=== PATIENT | female | born 1990 | race Caucasian/White ===

== ENCOUNTER 2021-02-18 04:10 | Inpatient (IN) | payer OTHER, SELFPAY ==
[~2021-02-18] VITALS: Ht 167.6 cm; Wt 72.6 kg
[2021-02-18] MEDS ORDERED: LACTATED RINGERS 1,000 ML IV SCH (04:45)
[2021-02-18] MEDS ORDERED: LACTATED RINGERS 500 ML IV ONE (04:45)
[2021-02-18] MEDS ORDERED: AMPICILLIN 2,000 MG in NACL 0.9% MINI-BAG PLUS 100 ML IV SCH (04:45)
[2021-02-18] MEDS ORDERED: OXYTOCIN 20 UNITS in NACL 0.9% 1,000 ML IV SCH (04:50)
[2021-02-18] MEDS ORDERED: AMPICILLIN 2,000 MG VIAL ONE (05:15)
[2021-02-18 05:21] LABS: BASOPHILS # (AUTO) 0.1 K/uL (0.00-0.22); BASOPHILS % (AUTO) 0.6 % (0.0-2.0); EOSINOPHILS % (AUTO) 0.6 % (0.0-4.0); HEMATOCRIT 31.9 % (36-48); HEMOGLOBIN 10.4 g/dL (12.0-16.0); LYMPHOCYTES # (AUTO) 2.1 K/uL (2.5-16.5); LYMPHOCYTES % (AUTO) 24.9 % (20.5-51.1); MEAN CORPUSCULAR HEMOGLOBIN 25 pg (27-31); MEAN CORPUSCULAR HGB CONC 33 g/dL (33-37); MONOCYTES # (AUTO) 0.7 K/uL (0.8-1.0); MONOCYTES % (AUTO) 8.7 % (1.7-9.3); NEUTROPHILS # (AUTO) 5.5 K/uL (1.8-7.7); NEUTROPHILS % (AUTO) 65.2 % (42.2-75.2); PLATELET COUNT (AUTO) 325 K/uL (140-450); RED BLOOD CELL COUNT(AUTO) 4.09 MIL/uL (4.20-5.40); RED CELL DISTRIBUTION WIDTH 16.3 % (11.6-13.7); WHITE BLOOD COUNT (AUTO) 8.5 K/uL (4.8-10.8)
[2021-02-18 05:31] LABS: APPEARANCE,URINE CLEAR (CLEAR); BILIRUBIN,URINE NEGATIVE (NEGATIVE); BLOOD, URINE NEGATIVE (NEGATIVE); COLOR,URINE YELLOW (YELLOW); LEUKOCYTE ESTERASE ,URINE NEGATIVE (NEGATIVE); NITRITE, URINE NEGATIVE (NEGATIVE); UGLUCOSE NEGATIVE (NEGATIVE)
[2021-02-18] MEDS ORDERED: MORPHINE SULFATE 10 MG/ML VIAL ONE (05:39)
[2021-02-18] MEDS ORDERED: OXYTOCIN 20 UNITS in LACTATED RINGERS 1,000 ML IV SCH (05:40)
[2021-02-18] MEDS ORDERED: ONDANSETRON 4 MG/2 ML VIAL IVP PRN (05:40)
[2021-02-18] MEDS ORDERED: MORPHINE SULFATE 5 MG/ML VIAL IVP PRN (05:40)
[2021-02-18] MEDS ORDERED: ONDANSETRON 4 MG/2 ML VIAL ONE (05:40)
[2021-02-18 05:50] VITALS: BP 119/65
[2021-02-18 05:50] LABS: BARBITURATE, URINE NEGATIVE ng/ml (NEG <=200); BENZODIAZEPINE, URINE NEGATIVE ng/mL (NEG <=200); CANNABINOID, URINE NEGATIVE ng/mL (NEG <=50); COCAINE, URINE NEGATIVE ng/mL (NEG <=300); OPIATE, URINE NEGATIVE ng/mL (NEG <=2000); PHENCYCLIDINE SCREEN,URINE NEGATIVE ng/mL (NEG <=25)
[2021-02-18] MEDS ORDERED: PRETAB PO (05:56)
[2021-02-18 05:59] LABS: ALBUMIN 1.9 g/dL (3.4-5.0); ANION GAP 16.3 (8-16); CARBON DIOXIDE 18.4 mmol/L (21-32); CREATININE 0.6 mg/dL (0.6-1.3); POTASSIUM 3.7 mmol/L (3.5-5.1); TOTAL BILIRUBIN 0.2 mg/dL (0.0-1.0)
[2021-02-18] MEDS ORDERED: fentaNYL citrate 0.05 MG/ML VIAL ONE ×2 (07:44→07:49)
[2021-02-18] MEDS ORDERED: ROPIVACAINE 0.2%/NS PREMIX 200 ML EPI ONE (07:44)
[2021-02-18] MEDS ORDERED: LIDOCAINE 2% 100 MG/5 ML SYR IVP ONE (07:49)
[2021-02-18] MEDS ORDERED: OXYTOCIN 20 UNITS/LR PREMIX 1,000 ML IV ONE (07:50)
[2021-02-18] MEDS ORDERED: AMPICILLIN 1,000 MG in NACL 0.9% MINI-BAG PLUS 50 ML IV SCH (08:00)
[2021-02-18 08:44] LABS: RAPID PLASMA REAGIN NON-REACTIVE (Non Reactiv)
--- NOTE | 2021-02-18 08:51 | NUR ---
PATIENT HAS BEEN SCREENED AND CATEGORIZED LOW NUTRITION RISK. PATIENT WILL BE SEEN WITHIN 7 DAYS OF ADMISSION. 02/24/[address]
[2021-02-18] MEDS ORDERED: oxyCODONE/APAP 5/325 MG 1 TAB TAB PO PRN (12:40)
[2021-02-18] MEDS ORDERED: HYDROcodone/APAP 5/325 MG 1 TAB TAB PO PRN (12:40)
[2021-02-18] MEDS ORDERED: IBUPROFEN 600 MG TAB PO PRN (12:40)
[2021-02-18] MEDS ORDERED: MEASLES, MUMPS, AND RUBELLA 1 VIAL SQVAC ONE (12:40)
[2021-02-18] MEDS ORDERED: METHYLERGONOVINE 0.2 MG/ML AMP IM PRN (12:40)
[2021-02-18] MEDS ORDERED: TEMAZEPAM 15 MG CAP PO PRN (12:40)
[2021-02-18] MEDS ORDERED: SODIUM PHOSPHATE 118 ML ENEM RC PRN (12:40)
[2021-02-18] MEDS ORDERED: MEASLES, MUMPS, AND RUBELLA 1 VIAL SQVAC SCH (13:00)
[2021-02-18] MEDS ORDERED: DOCUSATE SOD/SENNA 50/8.6 MG 1 TAB PO SCH (21:00)
[2021-02-19 05:30] LABS: HEMATOCRIT 27.7 % (36-48)
[2021-02-19 06:07] LABS: HEPATITIS B SURFACE ANTIGEN Negative (Negative)
[2021-02-19] MEDS ORDERED: IBUP-2213 PO (15:31)
== END 2021-02-19 17:40 | disposition home or self-care (01) | DRG 560 ==
LOC: MLD 04:10 → MFCC 15:55
PROVIDERS: ADMIT Obstetrics & Gynecology; ATTEND Obstetrics & Gynecology
PROC: 10D07Z6 Extraction of Products of Conception, Vacuum, Via Natural or Artificial Opening (ICD-10-PCS; principal; 2021-02-18)
PROC: 0UQMXZZ Repair Vulva, External Approach (ICD-10-PCS; 2021-02-18)
PROC: 10907ZC Drainage of Amniotic Fluid, Therapeutic from Products of Conception, Via Natural or Artificial Opening (ICD-10-PCS; 2021-02-18)
PROC: 3E0R3BZ Introduction of Anesthetic Agent into Spinal Canal, Percutaneous Approach (ICD-10-PCS; 2021-02-18)
PROC: 00HU33Z Insertion of Infusion Device into Spinal Canal, Percutaneous Approach (ICD-10-PCS; 2021-02-18)
PROC: 3E0234Z Introduction of Serum, Toxoid and Vaccine into Muscle, Percutaneous Approach (ICD-10-PCS; 2021-02-18)
PROC: 3E0134Z Introduction of Serum, Toxoid and Vaccine into Subcutaneous Tissue, Percutaneous Approach (ICD-10-PCS; 2021-02-18)
DX: O70.0 First degree perineal laceration during delivery (principal); Z20.822 Contact with and (suspected) exposure to COVID-19; Z37.0 Single live birth; Z3A.40 40 weeks gestation of pregnancy; Z23 Encounter for immunization
CPT/HCPCS: 36415; 59409; 76805; 80053; 80305; 81003; 85018; 85025; 86592; 86762; 86886; 86900; 86901; 87340; 87653-90; J0290; J2001; J2270; J2405; J2590; J2795; J3010; J7030; J7120

== ENCOUNTER 2021-02-27 22:23 | Emergency (ER) | payer OTHER, SELFPAY ==
[~2021-02-27] VITALS: Ht 167.6 cm; Wt 62.8 kg
[~2021-02-27 22:23] MED LIST: IBUP-2213 PO; PRETAB PO
[2021-02-27 22:26] VITALS: BP 124/83
--- NOTE | 2021-02-27 22:29 | NUR ---
TO LOBBY A/W BED AMBULATORY
--- NOTE | 2021-02-28 01:00 | NUR ---
PT. IS A 31 Y/O FEMALE THAT CAME INTO ED WITH C/O OF TEETH PAIN WITH LEFT SIDED FACIAL PAIN. PT. STATES THAT THE LEFT SIDED PAIN STARTED AFTER SHE GAVE A WEEK AGO. PT. ALSO STATES THAT HER TEETH "FEELS INFLAMED AND RADIATES TO HER EAR AND EYE." SHE STATES THAT SHE CANNOT SLEEP BECAUSE OF THE PAIN. DIME SIZED SWOLLEN AREA NOTED ON ROOF OF MOUTH. PT. RATES HER PAIN AT A 10/10 ON PAIN SCALE. DENIES N/V/D; SKIN IS PINK/WARM/DRY; AAOX4 WITH EVEN AND STEADY GAIT; HR EVEN AND REGULAR; PT DENIES ANY FEVER, CP, SOB, OR COUGH AT THIS TIME; VSS; PATIENT POSITIONED FOR COMFORT; HOB ELEVATED; BEDRAILS UP X2; BED DOWN. ER MADE AWARE OF PT STATUS.
[2021-02-28] MEDS ORDERED: cefTRIAXone 1,000 MG in LIDOCAINE MPF 1% 2.1 ML IM ONE (01:40)
[2021-02-28] MEDS ORDERED: KETOROLAC 60 MG/2 ML VIAL IM ONE (01:40)
[2021-02-28] MEDS ORDERED: cefTRIAXone 500 MG VIAL ONE (01:47)
[2021-02-28] MEDS ORDERED: LIDOCAINE MPF 1% 5 ML ONE (01:48)
[2021-02-28] MEDS ORDERED: LIDOCAINE 2% 100 MG/5 ML SYR IVP ONE (01:48)
[2021-02-28] MEDS ORDERED: PENI500T20 PO (02:01)
[2021-02-28] MEDS ORDERED: NAPR-54 PO (02:01)
[2021-02-28 02:05] VITALS: BP 124/83
== END 2021-02-28 02:05 | disposition home or self-care (01) ==
LOC: MED 22:23
DX: K12.0 Recurrent oral aphthae (principal); B99.8 Other infectious disease; Z79.899 Other long term (current) drug therapy
CPT/HCPCS: 96372; 99284; J0696; J1885; J2001